=== PATIENT | female | born 1940 | race Caucasian/White ===

== ENCOUNTER → 2017-10-08 | Outpatient (CLI) | payer OTHER ==
[~2017-10-08] MED LIST: BYSTOLIC10 MG PO; CELEXA20 MG PO; Folvite PO; Imuran PO; LEVOFLOXACIN PO; METOPROLOL SUCC25 MG PO; Theragran PO; Tylenol Regular Stre PO; Vitamin D, Drisdol PO; predniSONE PO
== END | disposition home or self-care (01) ==
LOC: NUC 08:47
DX: N18.3 Chronic kidney disease, stage 3 (moderate) (principal); Z87.442 Personal history of urinary calculi; E21.2 Other hyperparathyroidism
CPT/HCPCS: 78072; A9500; A9512

== ENCOUNTER 2018-01-21 09:15 | Day surgery (SDC) | payer OTHER ==
[2018-01-21] MEDS ORDERED: HYDROCODON-ACE1 EAC7 PO (12:13)
[2018-01-21] MEDS ORDERED: IMURAN50 MG PO (12:15)
[2018-01-21] MEDS ORDERED: DULOXETINE HCL20 MG PO (12:16)
[2018-01-21] MEDS ORDERED: ONE-A-DAY ESSE1 EAC1 PO (12:16)
[2018-01-21] MEDS ORDERED: PLAVIX75 MG PO (16:09)
== END 2018-01-21 20:35 | disposition home or self-care (01) ==
LOC: CATH 09:15
DX: I25.10 Atherosclerotic heart disease of native coronary artery without angina pectoris (principal); I25.84 Coronary atherosclerosis due to calcified coronary lesion; I44.7 Left bundle-branch block, unspecified; I10 Essential (primary) hypertension; F41.9 Anxiety disorder, unspecified; N28.89 Other specified disorders of kidney and ureter; E78.5 Hyperlipidemia, unspecified; M19.90 Unspecified osteoarthritis, unspecified site; Z82.49 Family history of ischemic heart disease and other diseases of the circulatory system; Z82.3 Family history of stroke; Z80.0 Family history of malignant neoplasm of digestive organs; Z82.5 Family history of asthma and other chronic lower respiratory diseases
CPT/HCPCS: 85347; C1725; C1760; C1769; C1887; C1894; J1644; J2250; J3010